=== PATIENT | female | born 1950 | race African-American/Black ===

== ENCOUNTER 2017-05-20 07:40 | Outpatient (CLI) | payer MEDICARE, BC ==
--- OUTSIDE RECORDS SUMMARY | 2017-05-20 07:43 | XMS | Clinical Summary ---
:1950 Author Organization [facility] Address [address] [place] [address] Phone Care Team Providers Name Role Phone , Primary Care Provider Unavailable Allergies Not on File Current Medications Not on file Active Problems Not on file Social History Tobacco Use Types Packs/Day Years Used Date Never Assessed Sex Assigned at Date Recorded Not on file Last Filed Vital Signs Not on file Plan of Treatment Not on file Results Not on filefrom Last 3 Months
--- NOTE | 2017-05-20 09:30 | ULT ---
RIGHT UPPER QUADRANT ULTRASOUND: History: Epigastric abdominal pain. Technique: Multiplanar grayscale and color doppler images obtained in a right upper quadrant ultraso und. FINDINGS: The liver is increased in echogenicity. There is an area demonstrating more normal echogenicity whic h may represent an area of focal fatty sparring. No intrahepatic biliary dilatation is seen. The ga llbladder is normal without stones, sludge, gallbladder wall thickening or pericholecystic fluid. Th e common bile duct is normal measuring 6 mm. The visualized portions of the pancreas are unremarkable. There is a cyst in the right kidney measur ing 1.7 cm in size. The right kidney demonstrates normal cortical echogenicity without hydronephrosi s or calculus measuring 11.6 cm in length. IMPRESSION: 1. Fatty liver. 2. Right renal cysts. POS: [facility]
== END 2017-05-20 07:41 | disposition home or self-care (01) ==
LOC: ULT 07:40
PROVIDERS: ATTEND Internal Medicine
DX: K82.8 Other specified diseases of gallbladder (principal); K76.0 Fatty (change of) liver, not elsewhere classified; N28.1 Cyst of kidney, acquired
CPT/HCPCS: 76705

== ENCOUNTER 2017-07-01 09:33 | Outpatient (CLI) | payer MEDICARE, BC ==
--- NOTE | 2017-07-01 11:48 | RAD ---
SMALL BOWEL FOLLOW THROUGH 07/01/17 HISTORY: Dysphagia. FINDINGS: A double contrast small bowel follow through was performed with air and barium. Esophageal motility is normal. There is a very small hiatal hernia. No esophageal strictures or masses are seen. No extr insic compression on the esophagus is present. No gastroesophageal reflux is seen during the examination. IMPRESSION: Small hiatal hernia. POS: ALFA
== END 2017-07-01 09:34 | disposition home or self-care (01) ==
LOC: RAD 09:33
PROVIDERS: ATTEND Internal Medicine
DX: R13.10 Dysphagia, unspecified (principal); K44.9 Diaphragmatic hernia without obstruction or gangrene
CPT/HCPCS: 74220

== ENCOUNTER 2017-09-17 09:32 | Outpatient (CLI) | payer MEDICARE, BC ==
--- NOTE | 2017-09-17 16:15 | NM ---
NUCLEAR MEDICINE BONE SCAN WHOLE BODY: (SKELETAL SCINTIGRAPHY) 09/17/17 HISTORY: 67-year-old female with low back pain and right lumbar radiculopathy. COMPARISON: Bone scan of 09/22/05. TECHNIQUE: IV injection of [id number]: 33.0 mCi 3 hour delayed whole body skeletal scintigraphy in anterior and posterior views. FINDINGS: There is increased uptake in the major joints, consistent with osteoarthrosis: bilateral shoulders, e lbows, wrist, knees, and ankles, especially the right ankle and right midfoot. There is increased uptake in the lower lumbar spine posteriorly bilaterally, right greater than left, consistent with degenerative facet disease. There are no focal lesions that are particularly suspicious for skeletal metastasis. All of the current findings are new since 2005. IMPRESSION: 1. Lower lumbar spondylosis consisting of bilateral facet osteoarthrosis. 2. Osteoarthrosis of multiple major joints, greatest in the right ankle and right foot. 3. No convincing evidence of metastatic disease. BETO Hill POS: [facility]
== END 2017-09-17 09:33 | disposition home or self-care (01) ==
LOC: NM 09:32
PROVIDERS: ATTEND Internal Medicine
DX: M54.5 Low back pain (principal); G89.29 Other chronic pain; M47.896 Other spondylosis, lumbar region; M19.071 Primary osteoarthritis, right ankle and foot
CPT/HCPCS: 78306; A9503

== ENCOUNTER 2017-11-22 13:58 | Outpatient (CLI) | payer MEDICARE, BC ==
--- NOTE | 2017-11-22 15:07 | MRI ---
MRI LUMBAR SPINE NONCONTRAST: Date: 11/22/17 HISTORY: Low back pain. Right sciatica/radiculopathy. FINDINGS: Images included in the retroperitoneal show cysts arising from the renal cortex bilaterally. Radiogra phs are not available for direct correlation; therefore, the lowest lumbar-type vertebra will be magalys ignated as L5, with remaining numbered accordingly. The conus medullaris has a normal appearance. Sachin tebral body heights are maintained. There is scattered discogenic end plate change within the bone ma rrow. There is desiccation of the lowest three intervertebral discs. T12-L1, L1-2, L2-3: Central canal and neural foramina are patent. L3-4: Minimal disc bulge. Thecal sac is patent. Mild to moderate stenosis of each neural foramen. L4-5: Posterior disc bulge and circumferential degenerative changes with mild central canal stenosis. Moder ate right and mild left foraminal stenoses. L5-S1: Minimal disc bulge. Thecal sac is patent. Degenerative changes result in mild bilateral foraminal dara nosis. IMPRESSION: Mild to moderate multilevel degenerative changes throughout the lumbar spine, with central canal and foraminal stenosis as detailed above. No focal nerve root compression is apparent. POS: [facility]
== END 2017-11-22 13:59 | disposition home or self-care (01) ==
LOC: MRI 13:58
PROVIDERS: ATTEND Internal Medicine
DX: M54.31 Sciatica, right side (principal); M47.896 Other spondylosis, lumbar region; M48.061 Spinal stenosis, lumbar region without neurogenic claudication
CPT/HCPCS: 72148

== ENCOUNTER 2018-07-08 10:59 | Outpatient (CLI) | payer MEDICARE, BC ==
--- NOTE | 2018-07-08 13:27 | MMO ---
BILATERAL SCREENING MAMMOGRAMS: Comparison: 2016, 2017 This study is interpreted with the assistance of computer aided detection. FINDINGS: Heterogeneously dense glandular pattern is seen. No evidence of mass, distortion, or suspicious calci fication. No significant interval change. Recommend one year follow up. IMPRESSION: BIRADS 1 - negative. POS: [facility]
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
== END 2018-07-08 11:00 | disposition home or self-care (01) ==
LOC: SCSMAMMO 10:59
PROVIDERS: ATTEND Internal Medicine
DX: Z12.31 Encounter for screening mammogram for malignant neoplasm of breast (principal); M47.22 Other spondylosis with radiculopathy, cervical region
CPT/HCPCS: 72141; 77067

== ENCOUNTER 2021-02-07 08:59 | Outpatient (CLI) | payer MEDICARE, BC | END 2021-02-07 09:00 | disposition home or self-care (01) | LOC: CTENTCT 08:59 | PROVIDERS: ATTEND Specialist | DX: J32.9 Chronic sinusitis, unspecified (principal) | CPT/HCPCS: 70486 ==

== ENCOUNTER 2023-04-18 19:00 | Outpatient (CLI) | payer MEDICARE, BC | END 2023-04-18 19:01 | disposition home or self-care (01) | LOC: SLEEPLAB 19:00 | PROVIDERS: ATTEND Student in an Organized Health Care Education/Training Program | DX: G47.33 Obstructive sleep apnea (adult) (pediatric) (principal); R53.83 Other fatigue; F32.A Depression, unspecified; K21.9 Gastro-esophageal reflux disease without esophagitis; G47.00 Insomnia, unspecified; I10 Essential (primary) hypertension; R06.83 Snoring; G47.10 Hypersomnia, unspecified; I49.3 Ventricular premature depolarization | CPT/HCPCS: 95810 ==

== ENCOUNTER 2023-05-10 09:21 | Outpatient (CLI) | payer MEDICARE, BC | END 2023-05-10 09:22 | disposition home or self-care (01) | LOC: SCSRAD 09:21 | PROVIDERS: ATTEND Nurse Practitioner Family | DX: R05.1 Acute cough (principal); U07.1 COVID-19 | CPT/HCPCS: 71046; 87635 ==